=== PATIENT | female | born 1970 | race Caucasian/White ===

== ENCOUNTER 2019-12-07 16:13 | Outpatient (REF) | payer MEDICAID, SELFPAY ==
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
== END 2019-12-07 16:14 | disposition home or self-care (01) ==
LOC: HO.MRI 16:13
PROVIDERS: PCP Internal Medicine Geriatric Medicine; Visit Provider Psychiatry & Neurology Neurology
DX: M54.2 Cervicalgia (principal); R20.2 Paresthesia of skin; M54.12 Radiculopathy, cervical region
CPT/HCPCS: 72141